=== PATIENT | male | born 1955 | race Caucasian/White ===

== ENCOUNTER 2021-02-20 06:58 | Emergency (ER) | payer OTHER ==
[2021-02-20 08:53] LABS: BASOPHIL 0.3 % (0-2); EOSINOPHIL 3.2 % (0-7); HCT 42.4 % (42.0-52.0); HGB 14.4 g/dl (13.2-18.0); MCH 32.4 pg (25.0-31.0); MCV 95.5 fL (78.0-100.0); MONOCYTE 11.2 % (0-12); MPV 11.1 fL (6.0-9.5); NEUTROPHIL 65.9 % (41-80); NRBC 0; PLT 205 K/uL (150-400); RBC 4.44 M/uL (4.70-6.00); WBC 11.3 K/uL (4.0-10.5)
[2021-02-20] MEDS ORDERED: KEFLEX250 MG PO (09:02)
[2021-02-20] MEDS ORDERED: BACTRIM DS TAB1 EACH PO (09:02)
[2021-02-20 09:12] LABS: BUN/CREAT RATIO (CALC) 15.3 RATIO; CREATININE 0.72 mg/dL (0.67-1.17); POTASSIUM 3.6 mmol/L (3.5-5.1)
== END 2021-02-20 10:02 | disposition home or self-care (01) ==
LOC: FER 06:58
PROVIDERS: Emergency Medicine
DX: L03.113 Cellulitis of right upper limb (principal); F17.210 Nicotine dependence, cigarettes, uncomplicated
CPT/HCPCS: 36415; 71046; 80048; 85025; 87040